=== PATIENT | male | born 1940 | race Two or more races ===

== ENCOUNTER 2018-01-04 13:44 | Outpatient (CLI) | payer OTHER ==
[~2018-01-04 13:44] MED LIST: AMLODIPINE BESY10 MG PO; CADUET 5 MG/101 TAB; HYDRALAZINE HCL50 MG PO; PROTONIX40 MG PO; SUCRALFATE1 GM/10 ML PO; XOPENEX0.63 MG/3 IH
== END 2018-01-04 13:50 | disposition home or self-care (01) ==
LOC: LAB 13:44
DX: R97.20 Elevated prostate specific antigen [PSA] (principal)

== ENCOUNTER 2018-01-26 07:08 | Outpatient (CLI) | payer OTHER | END 2018-01-26 07:32 | disposition home or self-care (01) | LOC: SONOGRAMA 07:08 | DX: R97.20 Elevated prostate specific antigen [PSA] (principal) ==

== ENCOUNTER 2018-02-14 07:50 | Outpatient (CLI) | payer OTHER | END 2018-02-14 14:44 | disposition home or self-care (01) | LOC: TOM 07:50 | DX: C61 Malignant neoplasm of prostate (principal) ==

== ENCOUNTER 2018-02-20 08:35 | Outpatient (CLI) | payer OTHER | END 2018-02-20 09:00 | disposition home or self-care (01) | LOC: NUCLEAR 08:35 | DX: C61 Malignant neoplasm of prostate (principal) | CPT/HCPCS: 78306; 78320; A9503 ==

== ENCOUNTER → 2018-02-28 09:29 | Outpatient (CLI) | payer OTHER | END | disposition home or self-care (01) | LOC: EKG 09:29 | DX: I10 Essential (primary) hypertension (principal) ==

== ENCOUNTER 2019-07-31 08:27 | Outpatient (CLI) | payer OTHER | END 2019-07-31 09:46 | disposition home or self-care (01) | LOC: TOM 08:27 | DX: K56.600 Partial intestinal obstruction, unspecified as to cause (principal); Z86.010 Personal history of colon polyps ==

== ENCOUNTER → 2022-01-28 07:26 | Outpatient (CLI) | payer OTHER | END | disposition home or self-care (01) | LOC: NUCLEAR 01-27 08:00 | PROVIDERS: ATTEND Internal Medicine Pulmonary Disease | DX: R91.1 Solitary pulmonary nodule (principal); C61 Malignant neoplasm of prostate; Z87.891 Personal history of nicotine dependence | CPT/HCPCS: 78815; A9552 ==

== ENCOUNTER 2023-08-07 08:09 | Outpatient (CLI) | payer OTHER | END 2023-08-07 08:20 | disposition home or self-care (01) | LOC: MRI 08:09 | PROVIDERS: ATTEND Urology | DX: N28.1 Cyst of kidney, acquired (principal) | CPT/HCPCS: 74181 ==

== ENCOUNTER 2024-02-19 07:23 | Outpatient (CLI) | payer OTHER | END 2024-02-19 07:24 | disposition home or self-care (01) | LOC: NUCLEAR 07:23 | DX: C34.81 Malignant neoplasm of overlapping sites of right bronchus and lung (principal) | CPT/HCPCS: 78815; A9552 ==

== ENCOUNTER 2024-03-05 13:00 | Outpatient (CLI) | payer OTHER | END 2024-03-05 13:08 | disposition home or self-care (01) | LOC: SONOGRAMA 13:00 | DX: C34.81 Malignant neoplasm of overlapping sites of right bronchus and lung (principal) ==